=== PATIENT | male | born 1980 | race Caucasian/White ===

== ENCOUNTER 2019-06-04 05:30 | Emergency (ER) | payer OTHER ==
[2019-06-04 05:39] VITALS: RESP 18; TEMP 97.8
[2019-06-04] MEDS ORDERED: ONDANSETRON 4 MG/2 ML VIAL IVP STA (06:04)
[2019-06-04] MEDS ORDERED: HYDROmorphone 0.5 MG/0.5 ML SYRINGE IVP STA (06:09)
[2019-06-04 06:12] LABS: Basophils # (A) 0.1 k/uL (0-0.2); Basophils % (A) 1 %; Eosinophils # (A) 0.4 k/uL (0-0.7); Eosinophils % (A) 5 %; HGB 16.2 gm/dL (13.0-17.5); Lymphocytes # (A) 2.5 k/uL (1.0-4.8); Lymphocytes % (A) 33 %; MCH 29.8 pg (25.0-35.0); MCHC 33.7 g/dL (31.0-37.0); MCV 88.5 fL (80.0-100.0); Mean Platelet Volume 6.8; Monocytes # (A) 0.5 k/uL (0-1.0); Monocytes % (A) 6 %; Neutrophils # (A) 4.1 k/uL (1.3-7.7); Neutrophils % (A) 53 %; Platelet Count 240 k/uL (150-450); RBC 5.42 m/uL (4.30-5.90); RDW 13.3 % (11.5-15.5); WBC 7.8 k/uL (3.8-10.6)
--- NOTE | 2019-06-04 06:16 | ED ---
Abdominal Pain HPI - General Source: patient Mode of arrival: ambulatory Limitations: no limitations - History of Present Illness MD Complaint: abdominal pain Onset/Timin -: hour(s) Location: RUQ Radiation: back Severity scale (1-10): 8 Quality: sharp Consistency: constant Improves With: nothing Worsens With: nothing Associated Symptoms: nausea <Kip Gaffney - Last Filed: 06/04/19 06:26> <Umberto Quiñones - Last Filed: 06/04/19 08:31> - General Chief Complaint: Abdominal Pain Stated Complaint: URQ Pain Time Seen by Provider: 06/04/19 05:59 - Related Data Home Medications Medication Instructions Recorded Confirmed Omeprazole [PriLOSEC] 40 mg PO HS 04/20/14 08/06/14 Acetaminophen [Tylenol] 500 mg PO Q4-6H PRN 08/04/14 08/06/14 Multivitamins, Thera [Multivitamin] 1 tab PO DAILY 08/04/14 08/06/14 Allergies Allergy/AdvReac Type Severity Reaction Status Date / Time No Known Allergies Allergy Verified 08/04/14 14:15 Review of Systems ROS Other: All systems not noted in ROS Statement are negative. Constitutional: Denies: fever, chills Respiratory: Denies: cough, dyspnea Cardiovascular: Denies: chest pain, palpitations Gastrointestinal: Reports: abdominal pain, nausea. Denies: vomiting, diarrhea, constipation, melena, hematochezia Genitourinary: Denies: dysuria, hematuria Musculoskeletal: Denies: back pain Skin: Denies: rash Neurological: Denies: headache, weakness, numbness <Kip Gaffney - Last Filed: 06/04/19 06:26> ROS Other: All systems not noted in ROS Statement are negative. <Umberto Quiñones - Last Filed: 06/04/19 08:31> ROS Statement: Those systems with pertinent positive or pertinent negative responses have been documented in the HPI. Past Medical History Past Medical History: Thyroid Disorder Additional Past Medical History / Comment(s): Hypothyroidism, Hodgkins lymphoma 2013. History of Any Multi-Drug Resistant Organisms: None Reported Additional Past Surgical History / Comment(s): BIOPSY OF THYROID. Past Anesthesia/Blood Transfusion Reactions: No Reported Reaction Past Psychological History: No Psychological Hx Reported Smoking Status: Never smoker Past Alcohol Use History: Occasional Past Drug Use History: None Reported <YeimyKip - Last Filed: 06/04/19 06:26> General Exam Limitations: no limitations Head exam: Present: atraumatic, normocephalic Eye exam: Present: normal appearance. Absent: scleral icterus, conjunctival injection ENT exam: Present: normal oropharynx Neck exam: Present: normal inspection Respiratory exam: Present: normal lung sounds bilaterally. Absent: respiratory distress, wheezes, rales, rhonchi, stridor Cardiovascular Exam: Present: regular rate, normal rhythm, normal heart sounds. Absent: systolic murmur, diastolic murmur, rubs, gallop GI/Abdominal exam: Present: soft, tenderness, normal bowel sounds. Absent: distended, guarding, rebound, rigid, mass, pulsatile mass, hernia Extremities exam: Present: normal inspection, normal capillary refill. Absent: pedal edema, calf tenderness Back exam: Present: normal inspection. Absent: CVA tenderness (R), CVA tenderness (L) Neurological exam: Present: alert Skin exam: Present: warm, dry, intact, normal color. Absent: rash <Kip Gaffney - Last Filed: 06/04/19 06:26> Course <Umberto Quiñones - Last Filed: 06/04/19 08:31> Vital Signs 06/04/19 06/04/19 05:35 07:59 Temperature 97.8 F 97.8 F Pulse Rate 75 57 L Respiratory 18 18 Rate Blood Pressure 121/85 117/84 O2 Sat by Pulse 100 100 Oximetry - Reevaluation(s) Reevaluation #1: 06/04/19 08:30 Patient reevaluated, resting comfortably, vital signs are stable. Laboratory testing reviewed and no significant abnormalities. Patient will follow-up with general surgery. Return with worsening or changing symptoms. (Umberto Quiñones) Medical Decision Making - Lab Data Result diagrams: 06/04/19 05:49 06/04/19 05:49 - EKG Data -: EKG Interpreted by [facility] EKG shows normal: sinus rhythm, axis (Normal), intervals (Normal), QRS complexes (Normal) Rate: normal (Rate 61 bpm) Interpretation: nonspecific ST-T wave changes <Kip Gaffney - Last Filed: 06/04/19 06:26> - Lab Data Result diagrams: 06/04/19 05:49 06/04/19 05:49 <Umberto Quiñones - Last Filed: 06/04/19 08:31> - Lab Data Lab Results 06/04/19 06/04/19 06/04/19 Range/Units 05:49 05:49 07:58 WBC 7.8 (3.8-10.6) k/uL RBC 5.42 (4.30-5.90) m/uL Hgb 16.2 (13.0-17.5) gm/dL Hct 48.0 (39.0-53.0) % MCV 88.5 (80.0-100.0) fL MCH 29.8 (25.0-35.0) pg MCHC 33.7 (31.0-37.0) g/dL RDW 13.3 (11.5-15.5) % Plt Count 240 (150-450) k/uL Neutrophils % 53 % Lymphocytes % 33 % Monocytes % 6 % Eosinophils % 5 % Basophils % 1 % Neutrophils # 4.1 (1.3-7.7) k/uL Lymphocytes # 2.5 (1.0-4.8) k/uL Monocytes # 0.5 (0-1.0) k/uL Eosinophils # 0.4 (0-0.7) k/uL Basophils # 0.1 (0-0.2) k/uL Sodium 142 (137-145) mmol/L Potassium 3.7 (3.5-5.1) mmol/L Chloride 104 (98-107) mmol/L Carbon Dioxide 27 (22-30) mmol/L Anion Gap 11 mmol/L BUN 15 (9-20) mg/dL Creatinine 1.03 (0.66-1.25) mg/dL Est GFR (CKD-EPI)AfAm >90 (>60 ml/min/1.73 sqM) Est GFR (CKD-EPI)NonAf >90 (>60 ml/min/1.73 sqM) Glucose 129 H (74-99) mg/dL Calcium 9.7 (8.4-10.2) mg/dL Total Bilirubin 0.8 (0.2-1.3) mg/dL AST 24 (17-59) U/L ALT 27 (4-49) U/L Alkaline Phosphatase 89 (38-126) U/L Total Protein 7.7 (6.3-8.2) g/dL Albumin 4.8 (3.5-5.0) g/dL Amylase 60 (30-110) U/L Lipase 87 (23-300) U/L Urine Color Yellow Urine Appearance Clear (Clear) Urine pH 5.5 (5.0-8.0) Ur Specific [place] 1.031 (1.001-1.035) Urine Protein Negative (Negative) Urine Glucose (UA) Negative (Negative) Urine Ketones Negative (Negative) Urine Blood Negative (Negative) Urine Nitrite Negative (Negative) Urine Bilirubin Negative (Negative) Urine Urobilinogen <2.0 (<2.0) mg/dL Ur Leukocyte Esterase Negative (Negative) Disposition <Kip Gaffney - Last Filed: 06/04/19 06:26> Is patient prescribed a controlled substance at d/c from ED?: No Time of Disposition: 08:21 <Umberto Quiñones - Last Filed: 06/04/19 08:31> Clinical Impression: Cholelithiasis, Abdominal pain Disposition: HOME SELF-CARE Instructions (If sedation given, give patient instructions): Abdominal Pain (ED), Biliary Colic (ED), Gallstones (ED) Referrals: None,Stated [Primary Care Provider] - 1-2 days Tess Justice MD [STAFF PHYSICIAN] - 1-2 days
[2019-06-04 06:20] LABS: ALT 27 U/L (4-49); AST 24 U/L (17-59); African American GFR (CKD) >90 (>60 ml/min/1.73 sqM); Albumin 4.8 g/dL (3.5-5.0); Alkaline Phosphatase 89 U/L (38-126); Amylase 60 U/L (30-110); Anion Gap 11 mmol/L; Blood Urea Nitrogen 15 mg/dL (9-20); Calcium 9.7 mg/dL (8.4-10.2); Carbon Dioxide 27 mmol/L (22-30); Chloride 104 mmol/L (98-107); Glucose 129 mg/dL (74-99); Non-African American GFR(CKD) >90 (>60 ml/min/1.73 sqM); Potassium 3.7 mmol/L (3.5-5.1); Sodium 142 mmol/L (137-145); Total Bilirubin 0.8 mg/dL (0.2-1.3); Total Protein 7.7 g/dL (6.3-8.2)
--- NOTE | 2019-06-04 07:43 | US ---
EXAMINATION TYPE: US abdomen limited DATE OF EXAM: 06/04/2019 COMPARISON: NONE CLINICAL HISTORY: Acute abdominal pain, right upper quadrant. RUQ Pain EXAM MEASUREMENTS: Liver Length: 20 cm Gallbladder Wall: .2 cm CBD: .5 cm Right Kidney: 8.7 x 4.2 x 4.5 cm Pancreas: Obscured by bowel gas Liver: Increased attenuation Gallbladder: Multiple tiny stones seen. Evidence for sonographic Isaac's sign: No CBD: wnl Right Kidney: wnl There is no ascites. IMPRESSION: Cholelithiasis. Correlate for possible hepatic steatosis, hepatocellular disease. Hepatom egaly. There are some limitations to the exam.
[2019-06-04 08:03] VITALS: BP 117/84; PULSE 57
[2019-06-04 08:18] LABS: Appearance,Urine Clear (Clear); Bilirubin,Urine Negative (Negative); Blood,Urine Negative (Negative); Color,Urine Yellow; Glucose,Urine (UA) Negative (Negative); Ketones,Urine Negative (Negative); Leukocyte Esterase,Urine Negative (Negative); Nitrite,Urine Negative (Negative); PH, Urine 5.5 (5.0-8.0); Protein,Urine Negative (Negative); Specific Gravity,Urine 1.031 (1.001-1.035); Urobilinogen,Urine <2.0 mg/dL (<2.0)
== END 2019-06-04 08:59 | disposition home or self-care (01) ==
LOC: EC 05:30
DX: K80.20 Calculus of gallbladder without cholecystitis without obstruction (principal); Z85.71 Personal history of Hodgkin lymphoma; Z79.899 Other long term (current) drug therapy
CPT/HCPCS: 36415; 80053; 82150; 83690; 85025; 81003; 76705; 96374; 96375; 99284; J2405; J1170